=== PATIENT | male | born 1995 | race Caucasian/White ===

== ENCOUNTER 2024-09-02 23:10 | Emergency (ER) | payer SELFPAY ==
[~2024-09-02] VITALS: Ht 170.2 cm; Wt 87.0 kg
[2024-09-02 23:16] VITALS: TEMP 98.5; O2SAT 99
[2024-09-03 00:24] LABS: CHLORIDE 104 mEq/L (98-107); PARTIAL THROMBOPLASTIN TIME 27.7 sec (23.4-31.0); POTASSIUM 3.9 mEq/L (3.5-5.1); PROTHROMBIN TIME 11.6 sec (9.6-11.0); SODIUM 139 mEq/L (136-145)
[2024-09-03 00:25] LABS: CALCIUM 9.5 mg/dL (8.7-10.4); CARBON DIOXIDE 28 mEq/L (21-32)
[2024-09-03 00:27] LABS: BASOPHILS % 0.3 % (0.0-2.0); EOSINOPHILS % 2.6 % (0.0-5.0); HEMATOCRIT. 45.7 % (42.0-52.0); HEMOGLOBIN. 15.4 g/dL (14.0-18.0); LYMPHOCYTES % 27.6 % (20.0-50.0); MEAN CORPUSCULAR HEMOGLOBIN 30.8 pg (28.0-32.0); MEAN CORPUSCULAR HGB CONC 33.7 g/dL (31.0-37.0); MEAN CORPUSCULAR VOLUME 91.3 fL (80.0-94.0); MEAN PLATELET VOLUME 7.9 fl (7.4-10.4); NEUTROPHILS % 63.5 % (40.0-76.0); PLATELET 266 x1000/uL (130-400); RED BLOOD CELL COUNT 5.01 mill/uL (4.7-6.1); RED CELL DISTRIBUTION WIDTH 12.8 % (11.6-14.6); WHITE BLOOD COUNT 7.5 x1000/uL (4.5-11.0)
[2024-09-03 00:30] LABS: CREATININE 0.9 mg/dL (0.6-1.3); GLUCOSE 94 mg/dL (70-105); UREA NITROGEN BLOOD 11 mg/dL (9-23)
[2024-09-03 00:38] LABS: ETHANOL BLOOD < 10 mg/dL (<10); TROPONIN I HIGH SENSITIVITY < 4 ng/L (3.0-53)
[2024-09-03] MEDS ORDERED: ACET-2708 MT (01:28)
[2024-09-03 02:01] VITALS: BP 129/71; PULSE 74; RESP 18; O2SAT 100
== END 2024-09-03 02:11 | disposition home or self-care (01) ==
LOC: ER 23:10
DX: R42 Dizziness and giddiness (principal); R07.89 Other chest pain
CPT/HCPCS: 36415; 71045; 80048; 80320; 83880; 84484; 85025; 93005; 99285; G0480